=== PATIENT | female | born 2000 | race Caucasian/White ===

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

== ENCOUNTER 2020-04-25 16:07 | Outpatient (CLI) | payer OTHER, SELFPAY ==
--- NOTE | ~2020-04-25 | XR_ITS ---
XR wrist RT 2V DATE: 04/25/2020 16:16 INDICATION: Right wrist pain TECHNIQUE: AP and lateral views COMPARISON: 07/24/2013 right wrist 02/24/2018 right forearm FINDINGS: No fracture or dislocation, periosteal reaction or bone destruction. Joint spaces are prese rved. No erosive change or chondrocalcinosis. IMPRESSION: Negative Reviewed, dictated and finalized at [facility]. IMPRESSION: Negative
== END 2020-04-25 16:08 ==
PROVIDERS: PCP Family Medicine; Visit Provider Nurse Practitioner Family
DX: M25.539 Pain in unspecified wrist (principal)
CPT/HCPCS: 73100

== ENCOUNTER 2020-11-14 02:30 | Emergency (ER) | payer OTHER, SELFPAY ==
--- NOTE | ~2020-11-14 | CT_ITS ---
EXAMINATION: CT brain wo con DATE: 11/14/2020 04:51 INDICATION: Headache. Hallucinations. TECHNIQUE: Computed tomography (CT) of the head was performed without intravenous contrast. The mA wa s adjusted according to patient size. Iterative reconstruction technique was employed. Exam dose: 90 8.00 mGy-cm total exam DLP. COMPARISON: 11/12/2017 CT head FINDINGS: There is nonstandard positioning. The base of the frontal and temporal lobes is excluded. N o intracranial mass lesion or hemorrhage or cerebrovascular accident. No midline shift or mass effect . Normal ventricular size. Normal [place]-white matter differentiation. No subdural or epidural hematoma . No fracture or bone destruction of the cranial vault. Included mastoid air cells are unremarkable. IMPRESSION: Limited examination; no significant abnormality demonstrated Reviewed, dictated and finalized at [facility]. Reviewed, dictated and finalized at location [facility].
[2020-11-14 02:42] VITALS: BP 142/89; PULSE 88; RESP 14; TEMP 36.4; O2SAT 100
--- NOTE | 2020-11-14 04:24 | ECG_ITS ---
Measurements Intervals [place] Rate: 78 P: 65 LA: 148 QRS: 66 QRSD: 79 T: 70 QT: 358 QTc: 409 Interpretive Statements SINUS RHYTHM BASELINE ARTIFACT- I, II, III, AVR, AVL, AVF, V2-V6 NORMAL ECG Electronically Signed On 11-14-2020 6:14:58 CDT by Alden Mina D.O.
--- NOTE | 2020-11-14 05:05 | PC.NURSE ---
pt refuses to be catheterized for urine at this time. Dr. Young made aware, pt given water at this time.
[2020-11-14 05:14] LABS: Alanine Aminotransferase 16 U/L (4-35); Alkaline Phosphatase 94 U/L (38-126); Anion Gap 10 mmol/L (8-16); Aspartate Amino Transferase 22 U/L (14-36); Basophils Absolute Auto 0.1 K/mm3 (0.0-0.1); Basophils Percent Auto 0.7 % (0.2-1.2); Bilirubin,Total 0.5 mg/dL (0.2-1.3); Blood Urea Nitrogen 12 mg/dL (7-17); Calcium 9.6 mg/dL (8.4-10.2); Carbon Dioxide 26 mmol/L (22-30); Chloride 103 mmol/L (98-107); Eosinophils Absolute Auto 0.2 K/mm3 (0-0.3); Eosinophils Percent Auto 1.7 % (0-4.4); Estimated Glomerular Filt Rate > 60; Glucose 84 mg/dL (65-110); Hematocrit 42.6 % (37.0-47.0); Hemoglobin 14.2 g/dL (12.0-15.0); Immature Granulocyte Absolute 0.12 K/mm3 (0.00-0.031); Immature Granulocyte Percent A 0.8 % (0-0.5); Lymphocytes Absolute Auto 2.88 K/mm3 (0.9-3.2); Lymphocytes Percent Auto 20.1 % (18.3-44.2); Mean Corpuscular HGB Conc 33.3 g/dl (32-36); Mean Corpuscular Hemoglobin 31.5 pg (26-34); Mean Corpuscular Volume 94.5 fl (80-100); Mean Platelet Volume 10.5 fl (7.4-10.4); Monocytes Absolute Auto 1.3 K/mm3 (0.1-0.6); Monocytes Percent Auto 8.9 % (2.6-8.5); Neutrophils Absolute Auto 9.7 K/mm3 (1.3-6.7); Neutrophils Percent Auto 67.8 % (45.5-73.1); Platelet Count Result 297 k/mm3 (150-375); Red Blood Count 4.51 M/mm3 (4.2-5.4); Red Cell Distribution Width 13.2 % (11.5-14.5); Sodium 139 mmol/L (137-145); White Blood Count 14.4 K/mm3 (4.5-10.0)
[2020-11-14 05:15] LABS: Acetaminophen < 10 ug/mL (10-30); Ethanol < 10 mg/dL (<10); Salicylate < 1.0 mg/dL (2-20)
--- NOTE | 2020-11-14 05:53 | ED.GENADULT ---
HPI - General Adult General Chief complaint: Unspecified Stated complaint: auditory hallucinations, headache Time Seen by Provider: 11/14/20 04:16 Source: patient and family History of Present Illness HPI narrative: Patient was brought in by father concern for headache. Patient recently moved in with the dad approximately 1 month ago reports she has recently tried meth amphetamines and THC. This morning she woke him up stating that she does not need to move out she does not need to leave. Dad reports he was confused and is unsure what she was talking about. They also reports she is been complaining of a headache all day so wanted to bring her in for evaluation. Dad reports he is unsure as to what is going on. Patient ports she has had a headache since taking her escitalopram. She works as prescribed to her for anxiety she took her second dose yesterday and has had a headache since then. Also reports she is trying to get it out of her system she did not clarify what it was referring to she denies any SI or HI denies any other focal areas of pain such as chest pain or abdominal pain. She denies any nausea or vomiting she does not confirm or deny using illicit substances Related Data Home Medications Medication Instructions Recorded Confirmed norethindrone 1 mg-ethinyl 1 tablet PO DAILY 01/19/19 04/25/20 estradiol 10 mcg (24)-iron 10 mcg(2) tablet Allergies Allergy/AdvReac Type Severity Reaction Status Date / Time cephalexin Allergy Intermediate Unknown Verified 11/14/20 03:22 amoxicillin Allergy Unknown Unknown Verified 11/14/20 03:22 [place]son Allergy Unknown Swelling Verified 11/14/20 03:22 Review of Systems Review of Systems: CONSTITUTIONAL: Denies fever, chills, or sweats. EYES: Denies visual changes, redness, or discharge. ENT: Denies rhinorrhea, congestion, sore throat, or otalgia. CARDIOVASCULAR: Denies chest pain, palpitations, or edema. RESPIRATORY: Denies cough or dyspnea. GASTROINTESTINAL: Denies abdominal pain, nausea, vomiting, or diarrhea. GENITOURINARY: Denies dysuria or hematuria. SKIN: Denies rash or itching. MUSCULOSKELETAL: Denies back pain, joint pain, or myalgia. NEUROLOGIC: Deniesnumbness, dizziness, or weakness. PSYCHIATRIC: Denies anxiety or depression. All systems reviewed & are unremarkable except as noted in HPI and below PMFSH Past Medical History Medical History Anxiety Body mass index (BMI) of greater than or equal to 95th percentile for age in patient 18 years to less than 21 years of age No active medical problems Surgical History Surgical History No pertinent past surgical history Family History Family History Mother Hypertension Grandparent Carcinoma of colon Family history of lung cancer Family history of malignant neoplasm of ovary Diabetes mellitus Father Hypertension Fatty liver Diabetes mellitus Hyperlipidemia Cholecystectomy planned Mother No problems noted. Sibling No problems noted. Sibling Fatty liver Hyperlipidemia Cholecystectomy planned Social History Social History Smoking status: Never smoker Second hand tobacco smoke exposure: Yes Alcohol intake: never Substance use: never Substance use type: does not use Gender identity (if verbalized by the patient): Female Exam Narrative: GENERAL: Well-appearing, well-nourished, and in no acute distress. HEAD: Normocephalic, atraumatic. EYES: PERRLA and EOMI. ENT: Nares clear, no rhinorrhea or epistaxis. Mucous membranes moist. NECK: Supple. No masses. No JVD CHEST: Clear to auscultation. No respiratory distress. No wheezes rales or rhonchi HEART: Regular rate and rhythm. No murmur heard. Normal peripheral pulses. ABDOMEN: Soft, nontender, nondistended, normal
[2020-11-14 06:58] LABS: Add Urine Microscopic? YES; Appearance Urine Clear (Clear); Bilirubin Urine Negative (Negative); Blood Urine 1+ (Negative); Color Urine Straw (Yellow); Glucose Urine UA Negative (Negative); Ketones Urine Negative (Negative); Leukocyte Esterase Ur Negative LEU/UL (Negative); Nitrate Urine Negative (Negative); Protein Urine Negative (Negative); RBC Urine 0-2 /hpf (0-2); Squamous Epithelial Cell Urine Few /hpf (Few); Urobilinogen Urine Negative mg/dL (<2.0); WBC Urine 0-3 /hpf
[2020-11-14 07:02] LABS: Barbiturate Screen Urine Negative (Negative); Benzodiazepines Screen Urine Negative (Negative)
[2020-11-14 07:03] LABS: Amphetamine Screen Urine Negative (Negative); Cannabinoid Screen Urine Negative (Negative); Cocaine Screen Urine Negative (Negative); Opiate Screen Urine Negative (Negative); Phencyclidine Screen Urine Negative (Negative)
[2020-11-14 07:10] LABS: Methadone Screen Urine Negative (Negative)
[2020-11-14 07:19] LABS: Specific Grav Ur 1.004 (1.001-1.035)
== END 2020-11-14 07:34 | disposition home or self-care (01) ==
PROVIDERS: Emergency Provider Emergency Medicine; PCP Family Medicine
DX: R51.9 Headache, unspecified (principal); F41.9 Anxiety disorder, unspecified
CPT/HCPCS: 36415; 70450; 80053; 80307; 81001; 81025; 84443; 85025; 93005; 99284

== ENCOUNTER 2021-10-21 12:37 | Outpatient (CLI) | payer OTHER, SELFPAY ==
--- NOTE | ~2021-10-21 | US_ITS ---
US OB /maternal detail DATE: 10/21/2021 13:21 INDICATION: anatomy scan TECHNIQUE: Real-time imaging and Doppler analysis COMPARISON: None FINDINGS: Live burgess intrauterine gestation, fetus in vertex presentation. Anterior placenta, low er margin approximately 13.8 cm above the internal os. Subjectively normal amount of amniotic fluid. Normal cerebral ventricles. Normal cerebellum. lips and nose appear normal. The spi ne is intact. The diaphragm is normal. Fluid is demonstrated in the stomach and urinary b ladder. No evidence of hydronephrosis. Four-chamber heart with heart rate of 130 bp m. Biparietal diameter is 6.99 cm; 28 weeks 1 day estimated gestational age by head circumference 25.47 cm; estimated gestational age 27 weeks 5 days Abdominal circumference 22.52 cm; estimated gestational age 26 weeks 6 days Femur length 4.96 cm; estimated gestational age is 26 weeks 5 days. Composite age by [place] formula is 27 weeks 3 days +/- 1 weeks 6 days; LILIYA is 01/17/2022, compared to 01/16/2022 by LMP. Estimated weight is 1012 +/- 152 g.. Head circumference/abnormal signal was 1.13, within normal range of 1.04-1.22 Femur length/abdominal circumference 22.03, within normal range of 20.00-24.00 Femur length/head circumference 19.47, within normal range of 18.69-20.49. Estimated weight-GP: 18.5% IMPRESSION: Estimated gestational age of 27 weeks 3 days +/- 1 weeks 6 days; LILIYA 01/17/2022 Normal anatomy screen Reviewed, dictated and finalized at [facility]. Reviewed, dictated and finalized at location [facility]. IMPRESSION: Estimated gestational age of 27 weeks 3 days +/- 1 weeks 6 days; ED D 01/17/2022 Normal anatomy screen
== END 2021-10-21 12:38 ==
LOC: MICIMG 12:39
PROVIDERS: PCP Obstetrics & Gynecology Gynecologic Oncology; Visit Provider Obstetrics & Gynecology Gynecologic Oncology
DX: Z36.9 Encounter for antenatal screening, unspecified (principal); Z3A.27 27 weeks gestation of pregnancy
CPT/HCPCS: 76805